=== PATIENT | female | born 1945 | race Caucasian/White ===

== ENCOUNTER 2019-08-01 06:32 | Outpatient (CLI) | payer MEDICARE, BC ==
[~2019-08-01] VITALS: Ht 162.6 cm; Wt 67.3 kg
[2019-08-01] MEDS ORDERED: NIACIN100 MG PO (07:05)
[2019-08-01] MEDS ORDERED: ASPIRIN81 MG PO (07:05)
[2019-08-01] MEDS ORDERED: OS-CAL500 MG PO (07:05)
[2019-08-01] MEDS ORDERED: VITAMIN D3400 UNI1 PO (07:06)
[2019-08-01] MEDS ORDERED: PROBIOTIC BLEN1 EACH (07:07)
[2019-08-01] MEDS ORDERED: OMEGA-3100 MG PO (07:08)
[2019-08-01 07:16] VITALS: BP 127/68; Ht 162.6 cm; Wt 67.3 kg
[2019-08-01 07:23] LABS: APTT 33.9 SECONDS (22.8-39.4); INR 1.01 (0.85-1.17); PROTIME 12.8 SECONDS (11.6-15.0)
[2019-08-01 07:30] LABS: CALCIUM 9.2 mg/dL (8.5-10.1); CARBON DIOXIDE 29.2 mmol/L (21.0-32.0); CREATININE - SERUM 0.8 mg/dL (0.6-1.3); POTASSIUM - SERUM 4.2 mmol/L (3.5-5.1)
[2019-08-01 07:56] LABS: BASOPHILS 1.3 % (0-2); EOSINOPHILS 2.6 % (0-7); HEMATOCRIT 43.7 % (36.0-48.0); HEMOGLOBIN 14.3 g/dL (12-16); IMMATURE GRANULOCYTES 1.1 % (0-5); LYMPHOCYTES 40.2 % (15-50); MCHC 32.7 g/dL (31.0-37.0); MCV 91.6 fL (80.0-100.0); MEAN PLATELET VOLUME 10.4 fL (7.4-10.4); MONOCYTES 10.4 % (2-11); NEUTROPHILS 44.4 % (40-80); PLATELET COUNT 655 10x3/uL (130-400); RBC 4.77 10x6/uL (4.00-5.40); RDW 14.3 % (11.5-14.5); WBC 9.2 10x3/uL (4.8-10.8)
--- NOTE | 2019-08-01 12:41 | NUR ---
0943-REC'D FROM [facility]. AWAKE AND ALERT WITHOUT PAIN. . VSS.IV PATENT.VSS. DRESSING TO BACK CDI.
--- NOTE | 2019-08-01 12:42 | NUR ---
1030-TOLERATED FULL REGULAR TRAY. AMBULATED TO RESTROOM AND URINATED WITHOUT COMPLICATIONS. VSS. DENIES PAIN.DRESSING TO BACK CDI.
--- NOTE | 2019-08-01 12:43 | NUR ---
1215-DISCHARGE CRITERIA MET. REMOVED IV WITH CATH INTACT,DISPOSED INTO SHARPS. COVERED SITE WITH BANDAID. REVIEWED POST OPERATIVE INSTRUCTIONS WITH PT. VERBALIZED UNDERSTANDING. ESCORTED OUT VIA W/C WITH SPOUSE AWAITING TO DRIVE HOME.
== END 2019-08-01 12:15 | disposition home or self-care (01) ==
LOC: D.SP 06:32 → D.CT 09:00 → D.SP 09:00
PROVIDERS: Radiology Vascular & Interventional Radiology; ATTEND Internal Medicine Hematology & Oncology
DX: D47.3 Essential (hemorrhagic) thrombocythemia (principal)

== ENCOUNTER 2021-01-01 19:03 | Emergency (ER) | payer MEDICARE, BC ==
[~2021-01-01] VITALS: Ht 162.6 cm; Wt 67.7 kg
[~2021-01-01 19:03] MED LIST: ASPIRIN81 MG PO; NIACIN100 MG PO; OMEGA-3100 MG PO; OS-CAL500 MG PO; PROBIOTIC BLEN1 EACH; VITAMIN D3400 UNI1 PO
[2021-01-01 19:17] VITALS: BP 171/84; Ht 162.6 cm; Wt 67.7 kg
[2021-01-01] MEDS ORDERED: HYDROXYUREA500 MG GT (19:19)
[2021-01-01 19:46] LABS: BASOPHILS 0.6 % (0-2); EOSINOPHILS 1.1 % (0-7); HEMATOCRIT 41.2 % (36.0-48.0); HEMOGLOBIN 13.7 g/dL (12-16); IMMATURE GRANULOCYTES 0.4 % (0-5); LYMPHOCYTE ABS# 2.61 10x3/uL (1.18-3.74); LYMPHOCYTES 36.3 % (15-50); MCH 33.9 pg (26.0-34.0); MCHC 33.3 g/dL (31.0-37.0); MEAN PLATELET VOLUME 9.9 fL (7.4-10.4); MONOCYTES 9.3 % (2-11); NEUTROPHIL ABS# 3.76 10x3/uL (1.56-6.13); NEUTROPHILS 52.3 % (40-80); RBC 4.04 10x6/uL (4.00-5.40); RDW 13.9 % (11.5-14.5); WBC 7.2 10x3/uL (4.8-10.8)
[2021-01-01 19:47] LABS: PLATELET COUNT 297 10x3/uL (130-400)
[2021-01-01 19:49] LABS: BILIRUBIN NEGATIVE (NEGATIVE); KETONE NEGATIVE (NEGATIVE); NITRITE NEGATIVE (NEGATIVE); UROBILINOGEN NORMAL mg/dL (< 2)
[2021-01-01 19:50] LABS: WHITE CELLS - URINE 0-5 HPF (0-4)
[2021-01-01 19:51] LABS: BACTERIA FEW HPF (NONE SEEN)
[2021-01-01 19:55] LABS: CALC OSMOLALITY 266 mosm/kg (275-300); CALCIUM 9.6 mg/dL (8.5-10.1); CARBON DIOXIDE 28.5 mmol/L (21.0-32.0); CHLORIDE - SERUM 97 mmol/L (98-107); GLUCOSE 95 mg/dL (74-106); POTASSIUM - SERUM 3.9 mmol/L (3.5-5.1); SODIUM 133 mmol/L (136-145); UREA NITROGEN 16 mg/dL (7-18); eGFR NON AFRICAN AMERICAN 57 mL/min (90-120)
[2021-01-01 20:05] LABS: ALBUMIN 3.9 g/dL (3.4-5.0); ALKALINE PHOSPHATASE 95 U/L (30-120); ALT (SGPT) 37 U/L (10-68); AMYLASE - SERUM 87 U/L (25-115); BILIRUBIN - TOTAL 0.35 mg/dL (0.2-1.3); LIPASE 194 U/L (73-393); PROTEIN - SERUM 7.9 g/dL (6.4-8.2)
[2021-01-01 20:06] LABS: TROPONIN-I < 0.017 ng/mL (0.000-0.060)
[2021-01-01] MEDS ORDERED: CHRONULAC30 ML PO (21:04)
[2021-01-01] MEDS ORDERED: BENTYL 20 MG TA20 MG PO (21:04)
[2021-01-01] MEDS ORDERED: MACROBID100 MG PO (21:09)
== END 2021-01-01 21:27 | disposition home or self-care (01) ==
LOC: D.ER 19:03
PROVIDERS: Family Medicine
DX: R10.31 Right lower quadrant pain (principal); K59.00 Constipation, unspecified; K21.9 Gastro-esophageal reflux disease without esophagitis

== ENCOUNTER → 2021-01-26 13:37 | Outpatient (CLI) | payer MEDICARE, BC ==
[2021-01-01 19:17] VITALS: BMI 25.6
[~2021-01-26 13:37] MED LIST changes: +BENTYL 20 MG TA20 MG PO; +CHRONULAC30 ML PO; +HYDROXYUREA500 MG GT; +MACROBID100 MG PO
== END | disposition home or self-care (01) ==
LOC: D.RAD 13:37
PROVIDERS: ATTEND Internal Medicine Gastroenterology
DX: K59.00 Constipation, unspecified (principal); R10.31 Right lower quadrant pain; K58.9 Irritable bowel syndrome, unspecified

== ENCOUNTER → 2021-03-03 07:35 | Outpatient (CLI) | payer MEDICARE, BC ==
[2021-01-01 19:17] VITALS: BMI 25.6
== END | disposition home or self-care (01) ==
LOC: D.NM 07:35
PROVIDERS: ATTEND Family Medicine
DX: R10.9 Unspecified abdominal pain (principal)